=== PATIENT | male | born 1980 | race American Indian/Alaskan Native ===

== ENCOUNTER 2017-05-19 11:03 | Inpatient (IN) | payer OTHER ==
[2017-05-19] MEDS ORDERED: Morphine 4 mg/ml ISec IVP STA ×2 (11:55→16:21)
[2017-05-19] MEDS ORDERED: Sodium Chloride 0.9% 2,000 ML IV STA (11:55)
--- NOTE | 2017-05-19 12:06 | ED PDOC ---
Arrival/HPI - General Chief Complaint: Abdominal Pain Time Seen by Provider: 05/19/17 11:39 Historian: Patient - History of Present Illness Narrative History of Present Illness (Text): 05/19/17 12:03 A 37 year old male, who denies any past medical history, presents to the emergency department complaining of left lower abdominal pain for 2 days. Patient notes associated fever, chills and a few episodes of non-bloody diarrhea. He reports an increased urge to defecate. Patient took Tylenol, with no relief. Patient denies any nausea, vomiting, chest pain, shortness of breath or any other complaints. Time/Duration: Other (2 days) Symptom Course: Unchanged Context: Home Past Medical History - Provider Review Nursing Documentation Reviewed: Yes - Cardiac Hx Cardiac Disorders: No - Pulmonary Hx Respiratory Disorders: No - Neurological Hx Neurological Disorder: No - HEENT Hx HEENT Disorder: No - Renal Hx Renal Disorder: No - Endocrine/Metabolic Hx Endocrine Disorders: No - Hematological/Oncological Hx Blood Disorders: No - Integumentary Hx Dermatological Disorder: No - Musculoskeletal/Rheumatological Hx Musculoskeletal Disorders: No - Gastrointestinal Hx Gastrointestinal Disorders: No - Genitourinary/Gynecological Hx Genitourinary Disorders: No - Psychiatric Hx Psychophysiologic Disorder: No Hx Substance Use: No Family/Social History - Physician Review Nursing Documentation Reviewed: Yes Family/Social History: No Known Family HX Smoking Status: Never Smoked Hx Alcohol Use: Yes Hx Substance Use: No Allergies/Home Meds Allergies/Adverse Reactions: Allergies No Known Allergies Allergy (Verified 05/19/17 11:17) Home Medications: Home Meds Medication Instructions Recorded Confirmed No Known Home Med 05/19/17 05/19/17 Review of Systems - Physician Review All systems were reviewed & negative as marked: Yes - Review of Systems Constitutional: Fevers, Night Sweats Respiratory: absent: SOB Cardiovascular: absent: Chest Pain Gastrointestinal: Abdominal Pain (left lower abdomen), Diarrhea. absent: Nausea , Vomiting Physical Exam Vital Signs Reviewed: Yes Vital Signs Temp Pulse Pulse Resp BP Pulse Ox 05/19/17 18:07 98.2 F 89 89 18 139/88 05/19/17 16:28 139/88 05/19/17 15:51 89 18 128/71 98 05/19/17 13:27 94 H 18 131/79 98 05/19/17 11:18 98.2 F 97 H 18 134/84 98 Temperature: Afebrile Blood Pressure: Normal Pulse: Tachycardic Respiratory Rate: Normal Appearance: Positive for: Well-Appearing, Non-Toxic, Comfortable Pain Distress: None Mental Status: Positive for: Alert and Oriented X 3 - Systems Exam Head: Present: Atraumatic, Normocephalic Pupils: Present: PERRL Extroacular Muscles: Present: EOMI Conjunctiva: Present: Normal Mouth: Present: Moist Mucous Membranes Neck: Present: Normal Range of Motion Respiratory/Chest: Present: Clear to Auscultation, Good Air Exchange. No: Respiratory Distress, Accessory Muscle Use Cardiovascular: Present: Regular Rate and Rhythm, Normal S1, S2. No: Murmurs Abdomen: Present: Tenderness (LLQ tenderness to palpation), Normal Bowel Sounds. No: Distention, Peritoneal Signs, Rebound, Guarding Back: Present: Normal Inspection Upper Extremity: Present: Normal Inspection. No: Cyanosis, Edema Lower Extremity: Present: Normal Inspection. No: Edema Neurological: Present: GCS=15, CN II-XII Intact, Speech Normal Skin: Present: Warm, Dry, Normal Color. No: Rashes Psychiatric: Present: Alert, Oriented x 3, Normal Insight, Normal Concentration Medical Decision Making ED Course and Treatment: 05/19/17 12:03 Impression: A 37 year old male with left lower abdominal pain. Patient notes fever, chills and diarrhea. Differential Diagnosis included but are not limited to: Rule out Diverticulitis vs. Influenza Plan: -- Abdomen and pelvis CT -- Labs -- Blood culture -- Influenza A B stat -- Morphine, Zofran and IV fluids -- Reassess and disposition Progress Notes: Report Date : 05/19/2017 14:30:09 PROCEDURE: CT Abdomen and Pelvis with contrast Dictator : Yoni Mas MD IMPRESSION: Findings most compatible with sigmoid diverticulitis without abscess or definite free intraperitoneal gas appreciated at this time. Please see differential diagnosis above as described above. Follow-up lower endoscopy is advised following therapy. - Lab Interpretations Lab Results: 05/19/17 12:15 05/19/17 12:15 Lab Results 05/19/17 12:15: Sodium 140, Chloride 98, Potassium 3.8, Carbon Dioxide 32, Anion Gap 13, BUN 12, Creatinine 1.3, Est GFR ( Amer) > 60, Est GFR (Non- Af Amer) > 60, Random Glucose 111 H, Calcium 10.6 H, Total Bilirubin 1.0, AST 38 , ALT 69 H, Alkaline Phosphatase 56, Total Protein 8.7 H, Albumin 4.7, Globulin 4.0, Albumin/Globulin Ratio 1.2, Lipase 53 05/19/17 12:15: pO2 29 L, VBG pH 7.34, VBG pCO2 62.0 H, VBG HCO3 33.4 H, VBG Total CO2 35.3 H, VBG O2 Sat (Calc) 54.4, VBG Base Excess 5.6 H, VBG Potassium 3.7, Sodium 137.0, Chloride 101.0, Glucose 109, Lactate 1.1, FiO2 21.0, Venous Blood Potassium 3.7 05/19/17 12:15: PT 13.8 H, INR 1.20 H 05/19/17 12:15: Influenza Typ A,B (EIA) Negative for flu a/b 05/19/17 12:15: WBC 15.6 H, RBC 4.68, Hgb 14.4, Hct 40.9 L, MCV 87.4, MCH 30.8, MCHC 35.2, RDW 12.5, Plt Count 231, MPV 10.1, Gran % 83.4 H, Lymph % (Auto) 10.4 L, [place] % (Auto) 6.1 H, Eos % (Auto) 0.0 L, Baso % (Auto) 0.1, Gran # 13.01 H, Lymph # (Auto) 1.6, [place] # (Auto) 1.0 H, Eos # (Auto) 0.0, Baso # (Auto ) 0.01 I have reviewed the lab results: Yes - RAD Interpretation Radiology Orders: 05/19/17 11:55 ABD PELVIS PO & IV CONTRAST [CT] Stat - Medication Orders Current Medication Orders: Ciprofloxacin (Cipro 400mg/200ml Dsw) 400 mg in 200 mls @ 133.3 mls/hr IVPB Q12 VINCENZO PRN Reason: Protocol Stop: 05/19/17 23:31 Metronidazole (Flagyl) 500 mg in 100 mls @ 100 mls/hr IVPB Q8 VINCENZO PRN Reason: Protocol Last Admin: 05/19/17 21:58 Dose: 100 mls/hr eMAR Start Stop Document 05/19/17 21:58 OLIVD (Rec: 05/19/17 21:59 OLIVD [id number]) Intravenous Solution Start Date 05/19/17 Start Time 21:58 End Date 05/19/17 End time 22:58 Total Infusion Time 60 Sodium Chloride (Sodium Chloride 0.9%) 1,000 mls @ 100 mls/hr IV .Q10H VINCENZO Last Admin: 05/19/17 21:12 Dose: 100 mls/hr eMAR Start Stop Document 05/19/17 21:12 OLIVD (Rec: 05/19/17 21:12 OLIVD [id number]) Intravenous Solution Start Date 05/19/17 Start Time 21:12 Pantoprazole Sodium (Protonix Ec Tab) 40 mg PO 0600 VINCENZO Discontinued Medications Acetaminophen (Tylenol 325mg Tab) 650 mg PO STAT STA Stop: 05/19/17 20:06 Last Admin: 05/19/17 20:26 Dose: 650 mg Comments: T102.9 [facility] Pain/Vitals Document 05/19/17 20:26 OLIVD (Rec: 05/19/17 20:27 OLIVD [id number]) Pain Reassessment Is This A Pain ReAssessment? No Vitals Temperature (97.6 F-99.6 F) 102.9 F Temperature Source Oral Re-Assess: [facility] Pain/Vitals Document 05/19/17 21:26 OLIVD (Rec: 05/19/17 21:56 OLIVD [id number]) Vitals Temperature (97.6 F-99.6 F) 100.7 F Temperature Source Oral Sodium Chloride (Sodium Chloride 0.9%) 2,000 mls @ 999 mls/hr IV .Q2H1M STA Stop: 05/19/17 13:55 Last Admin: 05/19/17 12:40 Dose: 999 mls/hr eMAR Start Stop Document 05/19/17 12:40 GMD (Rec: 05/19/17 12:41 GMD [id number]) Intravenous Solution Start Date 05/19/17 Start Time 12:41 End Date 05/19/17 End time 14:41 Total Infusion Time 120 Metronidazole (Flagyl) 500 mg in 100 mls @ 100 mls/hr IVPB STAT STA PRN Reason: Protocol Stop: 05/19/17 17:18 Last Admin: 05/19/17 16:58 Dose: 100 mls/hr eMAR Start Stop Document 05/19/17 16:58 EQ (Rec: 05/19/17 16:58 EQ [id number]) Intravenous Solution Start Date 05/19/17 Start Time 16:58 Sodium Chloride (Sodium Chloride 0.9%) 1,000 mls @ 999 mls/hr IV .Q1H1M STA Stop: 05/19/17 17:21 Last Admin: 05/19/17 16:58 Dose: 999 mls/hr eMAR Start Stop Document 05/19/17 16:58 EQ (Rec: 05/19/17 16:58 EQ [id number]) Intravenous Solution Start Date 05/19/17 Start Time 16:58 Ketorolac Tromethamine (Toradol) 30 mg IVP STAT STA Stop: 05/19/17 20:12 Last Admin: 05/19/17 20:27 Dose: 30 mg [facility] Pain Assessment Document 05/19/17 20:27 OLIVD (Rec: 05/19/17 20:28 OLIVD [id number]) Pain Reassessment Is this a pain reassessment? No Presence of Pain Presence of Pain Yes Pain Scale Used Pain Scale Used Numeric Location Pain Location Body Site Abdomen Description Description Constant Intensity of Pain at present 9 Aggravating Factors Changing Position IVP Administration Document 05/19/17 20:27 OLIVD (Rec: 05/19/17 20:28 OLIVD [id number]) Charges for Administration # of IVP Administrations 1 Re-Assess: [facility] Pain Assessment Document 05/19/17 21:27 OLIVD (Rec: 05/19/17 21:55 OLIVD [id number]) Pain Reassessment Is this a pain reassessment? Yes Sleep Is patient sleeping during reassessment? No Presence of Pain Presence of Pain Yes Pain Scale Used Pain Scale Used Numeric Description Description Intermittent Intensity of Pain at present 7 Effectiveness of Techniques pain has decreased Levofloxacin/Dextrose (Levaquin 750mg) 750 mg IVPB ONCE ONE PRN Reason: Protocol Stop: 05/19/17 16:21 Last Admin: 05/19/17 17:59 Dose: 750 mg eMAR Start Stop Document 05/19/17 17:59 GMD (Rec: 05/19/17 17:59 GMD [id number]) Intravenous Solution Start Date 05/19/17 Start Time 17:59 Morphine Sulfate (Morphine) 4 mg IVP STAT STA Stop: 05/19/17 11:56 Last Admin: 05/19/17 12:41 Dose: 4 mg MAR Pain Assessment Document 05/19/17 12:41 GMD (Rec: 05/19/17 12:41 GMD [id number]) Pain Reassessment Is this a pain reassessment? No Presence of Pain Presence of Pain Yes IVP Administration Document 05/19/17 12:41 GMD (Rec: 05/19/17 12:41 GMD [id number]) Charges for Administration # of IVP Administrations 1 Morphine Sulfate (Morphine) 4 mg IVP STAT STA Stop: 05/19/17 16:22 Last Admin: 05/19/17 16:58 Dose: 4 mg MAR Pain Assessment Document 05/19/17 16:58 EQ (Rec: 05/19/17 16:59 EQ [id number]) Pain Reassessment Is this a pain reassessment? No Sleep Is patient sleeping during reassessment? No Presence of Pain Presence of Pain Yes IVP Administration Document 05/19/17 16:58 EQ (Rec: 05/19/17 16:59 EQ [id number]) Charges for Administration # of IVP Administrations 1 Ondansetron HCl (Zofran Inj) 4 mg IVP STAT STA Stop: 05/19/17 11:56 Last Admin: 05/19/17 12:41 Dose: 4 mg IVP Administration Document 05/19/17 12:41 GMD (Rec: 05/19/17 12:41 GMD [id number]) Charges for Administration # of IVP Administrations 1 Ondansetron HCl (Zofran Inj) 4 mg IVP STAT STA Stop: 05/19/17 16:22 Last Admin: 05/19/17 16:59 Dose: 4 mg IVP Administration Document 05/19/17 16:59 EQ (Rec: 05/19/17 16:59 EQ [id number]) Charges for Administration # of IVP Administrations 1 Pneumococcal Polyvalent Vaccine (Pneumovax 23 Vaccine) 0.5 ml IM .ONCE ONE Stop: 05/19/17 18:19 - PA / MEAT LOINER / Resident Statement MD/DO has reviewed & agrees with the documentation as recorded. - Scribe Statement The provider has reviewed the documentation as recorded by the Berny Herrera Provider Berny Attestation: All medical record entries made by the Berny were at my direction and personally dictated by me. I have reviewed the chart and agree that the record accurately reflects my personal performance of the history, physical exam, medical decision making, and the department course for this patient. I have also personally directed, reviewed, and agree with the discharge instructions and disposition. Disposition/Present on Arrival - Present on Arrival Any Indicators Present on Arrival: No History of DVT/PE: No History of Uncontrolled Diabetes: No Urinary Catheter: No History of Decub. Ulcer: No History Surgical Site Infection Following: None - Disposition Have Diagnosis and Disposition been Completed?: Yes Diagnosis: Diverticulitis Disposition: HOSPITALIZED Disposition Time: 22:19 Patient Plan: Admission Condition: GOOD
[2017-05-19] MEDS ORDERED: Iohexol 240 (50 ml) ONE (12:13)
[2017-05-19 12:40] LABS: BASO # 0.01 K/mm3 (0.0-2.0); BASO % 0.1 % (0.0-3.0); GRAN # 13.01 (1.4-6.5); GRAN % 83.4 % (50.0-68.0); HEMOGLOBIN 14.4 g/dL (14.0-18.0); LYMPH # 1.6 (1.2-3.4); LYMPH % 10.4 % (22.0-35.0); MEAN CELL VOLUME 87.4 fl (80.0-105.0); MEAN CORPUSCULAR HEMOGLOBIN 30.8 pg (25.0-35.0); MEAN CORPUSCULAR HGB CONC 35.2 g/dl (31.0-37.0); MEAN PLATELET VOLUME 10.1 fl (7.0-11.0); MONO % 6.1 % (1.0-6.0); RBC 4.68 10^6/uL (3.5-6.1); RED CELL DISTRIBUTION WIDTH 12.5 % (11.5-14.5); WHITE BLOOD COUNT 15.6 10^3/ul (4.5-11.0)
[2017-05-19 12:41] LABS: VENOUS BLOOD GAS BASE EXCESS 5.6 mmol/L (0.0-2.0); VENOUS BLOOD GAS PO2 29 mm/Hg (30-55); VENOUS BLOOD PH 7.34 (7.32-7.43)
[2017-05-19 12:46] LABS: INR 1.2 (0.93-1.08); PROTHROMBIN TIME 13.8 SECONDS (9.4-12.5)
[2017-05-19 12:49] LABS: ALB/GLOB RATIO 1.2 (1.1-1.8); ALBUMIN 4.7 g/dL (3.0-4.8); ALT/SGPT 69 U/L (7-56); AST/SGOT 38 U/L (17-59); BLOOD UREA NITROGEN 12 mg/dL (7-21); CALCIUM 10.6 mg/dL (8.4-10.5); GFR AFRICAN-AMERICAN > 60; GFR NON-AFRICAN AMERICAN > 60; LIPASE 53 U/L (23-300)
[2017-05-19 12:51] VITALS: BMI 31.4
[2017-05-19] MEDS ORDERED: Iohexol 350 MG/100 ML VIAL ONE (13:33)
--- NOTE | 2017-05-19 14:32 | CT ---
PROCEDURE: CT Abdomen and Pelvis with contrast HISTORY: LLQ PAIN/TENDERNESS ?DIVERTICULITIS? COMPARISON: None. TECHNIQUE: Following oral and intravenous contrast administration, a CT examination of the abdomen and pelvis performed from the domes of the diaphragms to the symphysis pubis with reformatted datasets provided not only axial but also sagittal and coronal series. Contrast dose: Omnipaque 350, 100 cc Radiation dose: Total exam DLP = 513.86 mGy-cm. This CT exam was performed using one or more of the following dose reduction techniques: Automated exposure control, adjustment of the mA and/or kV according to patient size, and/or use of iterative reconstruction technique. FINDINGS: LOWER THORAX: Trace bilateral basilar atelectasis is appreciated as well as a small hiatal hernia. LIVER: Unremarkable. No gross lesion or ductal dilatation. GALLBLADDER AND BILE DUCTS: Unremarkable. PANCREAS: Unremarkable. No gross lesion or ductal dilatation. SPLEEN: Unremarkable. ADRENALS: Unremarkable. No mass. KIDNEYS AND URETERS: Unremarkable. No hydronephrosis. No solid mass. VASCULATURE: Unremarkable. No aortic aneurysm. BOWEL: Stomach is unremarkable appearing. There is no bowel obstruction however there is marked thickening of the sigmoid colon diffusely with the midportion worst affected. Occasional diverticular seen related the overall pattern is most compatible with diverticulitis though other infectious or inflammatory causes are possible. Underlying neoplasm is not excluded and follow-up lower endoscopy is advised following therapy. Ischemia is not felt to present but is including the different diagnosis nevertheless. A past of small bowel loops appear unremarkable. No free intraperitoneal gas is evident and there is no abscess identified at this time. Liquified fecal material seen within distal small bowel loops past the affected inflamed sigmoid segment. APPENDIX: Normal appendix. PERITONEUM: Unremarkable. No free fluid. No free air. LYMPH NODES: Unremarkable. No enlarged lymph nodes. BLADDER: Unremarkable. REPRODUCTIVE: Unremarkable. BONES: No acute fracture. OTHER FINDINGS: None. IMPRESSION: Findings most compatible with sigmoid diverticulitis without abscess or definite free intraperitoneal gas appreciated at this time. Please see differential diagnosis above as described above. Follow-up lower endoscopy is advised following therapy.
[2017-05-19] MEDS ORDERED: metroNIDAZOLE IV 500 mg/100 ml 500 MG/100 ML BAG IVPB STA (16:19)
[2017-05-19] MEDS ORDERED: levoFLOXacin 750 mg in D5W 150 ML BAG IVPB ONE (16:20)
[2017-05-19] MEDS ORDERED: Sodium Chloride 0.9% 1,000 ML IV STA (16:21)
[2017-05-19] MEDS ORDERED: Influenza Vaccine 60 mcg/0.5 mL SYR (4YR UP) IM ONE (18:18)
[2017-05-19] MEDS ORDERED: Pneumococcal 23-Valent Vaccine IM ONE (18:18)
[2017-05-19 21:12] LABS: BASO # 0.01 K/mm3 (0.0-2.0); BASO % 0.1 % (0.0-3.0); EOS % 0.1 % (1.5-5.0); GRAN # 11.8 (1.4-6.5); GRAN % 79.3 % (50.0-68.0); HEMOGLOBIN 13.4 g/dL (14.0-18.0); LYMPH # 1.7 (1.2-3.4); LYMPH % 11.2 % (22.0-35.0); MEAN CORPUSCULAR HEMOGLOBIN 30.6 pg (25.0-35.0); MEAN CORPUSCULAR HGB CONC 35.2 g/dl (31.0-37.0); MEAN PLATELET VOLUME 9.9 fl (7.0-11.0); MONO # 1.4 (0.1-0.6); MONO % 9.3 % (1.0-6.0); RBC 4.38 10^6/uL (3.5-6.1); RED CELL DISTRIBUTION WIDTH 12.4 % (11.5-14.5); WHITE BLOOD COUNT 14.9 10^3/ul (4.5-11.0)
[2017-05-19] MEDS: Sodium Chloride 0.9% 1,000 ML IV SCH (21:12)
[2017-05-19] MEDS: metroNIDAZOLE IV 500 mg/100 ml 500 MG/100 ML BAG IVPB SCH (21:58)
[2017-05-19] MEDS ORDERED: Ciprofloxacin 400mg/200ml D5W 400 MG/200 ML BAG IVPB SCH (22:00)
--- NOTE | 2017-05-19 22:37 | CP.PCM.HP ---
<Casimiro Arthur - Last Filed: 05/19/17 22:32> History of Present Illness - History of Present Illness History of Present Illness: Medicine H/P: Dr. Haddad Chief Complaint: Abdominal Pain HPI: Patient is 37 year old male with questionable history of lactose intolerance ( gets sick to stomach when eats ice cream or drinks milk) who presented with abdominal pain in left lower quadrant and blood per rectum. Patient states that the pain started a couple of days ago, he went to [facility], from where he was discharged. He woke up this am at 5 with intractible pain and decided to come here to [facility]. Patient has never experienced this in the past. He said he had a fever at home of 102. Other than that, patient denies nausea vomiting diarrhea, chills, change in eating habits, weight loss, chest pain, or shortness of breath. Surgical History: Patient denies Medical History: ?Lactose intolerance? Allergies: NKDA Social History: Social alcohol, never smoker, +Marijuana, no IVDA Hospitaliztions: [place] [facility] Family History: No family history of diverticulosis; non-contributory Medications: No daily medications Review of Systems: 12 point ROS obtained and negative except as per HPI Present on Admission - Present on Admission Any Indicators Present on Admission: No Past Patient History - Past Social History Smoking Status: Never Smoked - CARDIAC Hx Cardiac Disorders: No - PULMONARY Hx Respiratory Disorders: No - NEUROLOGICAL Hx Neurological Disorder: No - HEENT Hx HEENT Problems: No - RENAL Hx Chronic Kidney Disease: No - ENDOCRINE/METABOLIC Hx Endocrine Disorders: No - HEMATOLOGICAL/ONCOLOGICAL Hx Blood Disorders: No - INTEGUMENTARY Hx Dermatological Problems: No - MUSCULOSKELETAL/RHEUMATOLOGICAL Hx Musculoskeletal Disorders: No - GASTROINTESTINAL Hx Gastrointestinal Disorders: No - GENITOURINARY/GYNECOLOGICAL Hx Genitourinary Disorders: No - PSYCHIATRIC Hx Psychophysiologic Disorder: No Hx Substance Use: No - SURGICAL HISTORY Hx Surgeries: Yes (tonsillectomy) Meds Allergies/Adverse Reactions: Allergies Allergy/AdvReac Type Severity Reaction Status Date / Time No Known Allergies Allergy Verified 05/19/17 11:17 Physical Exam - Constitutional Appears: Well - Head Exam Head Exam: ATRAUMATIC, NORMAL INSPECTION, NORMOCEPHALIC - Eye Exam Eye Exam: EOMI, Normal appearance, PERRL Pupil Exam: NORMAL ACCOMODATION, PERRL - ENT Exam ENT Exam: Mucous Membranes Moist, Normal Exam - Neck Exam Neck exam: Positive for: Normal Inspection - Respiratory Exam Respiratory Exam: Clear to Auscultation Bilateral, NORMAL BREATHING PATTERN - Cardiovascular Exam Cardiovascular Exam: REGULAR RHYTHM - GI/Abdominal Exam GI & Abdominal Exam: Normal Bowel Sounds, Soft. absent: Tenderness - Rectal Exam Rectal Exam: Bloody Stool. absent: Hemorrhoids - Extremities Exam Extremities exam: Positive for: normal inspection - Back Exam Back exam: NORMAL INSPECTION - Neurological Exam Neurological exam: Alert, CN II-XII Intact, Normal Gait, Oriented x3, Reflexes Normal - Psychiatric Exam Psychiatric exam: Normal Affect, Normal Mood - Skin Skin Exam: Dry, Intact, Normal Color, Warm - Additional Findings Additional findings: tenderness to palpation in LLQ Results - Vital Signs Recent Vital Signs: Last Vital Signs Temp 100.7 F H 05/19/17 21:26 Pulse 89 05/19/17 18:07 Resp 18 05/19/17 18:07 BP 139/88 05/19/17 18:07 Pulse Ox 98 05/19/17 15:51 - Labs Result Diagrams: 05/19/17 21:00 05/19/17 12:15 Labs: Laboratory Results - last 24 hr 05/19/17 21:00 WBC 14.9 H RBC 4.38 Hgb 13.4 L Hct 38.1 L MCV 87.0 MCH 30.6 MCHC 35.2 RDW 12.4 Plt Count 211 MPV 9.9 Gran % 79.3 H Lymph % (Auto) 11.2 L [place] % (Auto) 9.3 H Eos % (Auto) 0.1 L Baso % (Auto) 0.1 Gran # 11.80 H Lymph # (Auto) 1.7 [place] # (Auto) 1.4 H Eos # (Auto) 0.0 Baso # (Auto) 0.01 Assessment & Plan - Assessment and Plan (Free Text) Assessment: Assessment and Plan Patient is 37 year old male with questionable history of lactose intolerance ( gets sick to stomach when eats ice cream or drinks milk) who presented with abdominal pain in left lower quadrant and blood per rectum. CT Abdomen/Pelvis shows sigmoid diverticulitis, patient has leukocytosis, fever, with source of infection makes him septic. Sepsis, likely 2/2 Diverticulitis - Procal and Lactate ordered; no apparent end organ damage - Fluid resuscitation - Tylenol for fever Diverticulitis - Cipro flagyl - NPO - Fluids - Toradol for pain control Lactose intolerance - Avoid in diet Prophylaxis - SCD/Protonix <Kianna Haddadmery - Last Filed: 05/20/17 00:38> Results - Vital Signs Recent Vital Signs: Last Vital Signs Temp 100.7 F H 05/19/17 21:26 Pulse 89 05/19/17 18:07 Resp 18 05/19/17 18:07 BP 139/88 05/19/17 18:07 Pulse Ox 98 05/19/17 15:51 - Labs Result Diagrams: 05/19/17 21:00 05/19/17 12:15 Labs: Laboratory Results - last 24 hr 05/19/17 05/19/17 21:00 23:00 WBC 14.9 H RBC 4.38 Hgb 13.4 L Hct 38.1 L MCV 87.0 MCH 30.6 MCHC 35.2 RDW 12.4 Plt Count 211 MPV 9.9 Gran % 79.3 H Lymph % (Auto) 11.2 L [place] % (Auto) 9.3 H Eos % (Auto) 0.1 L Baso % (Auto) 0.1 Gran # 11.80 H Lymph # (Auto) 1.7 [place] # (Auto) 1.4 H Eos # (Auto) 0.0 Baso # (Auto) 0.01 Lactic Acid 0.9 Attending/Attestation - Attestation I have personally seen and examined this patient.: Yes I have fully participated in the care of the patient.: Yes I have reviewed all pertinent clinical information: Yes Notes (Text): 05/20/17 00:37 Patient was seen when he was in [phone]. Agree with history , physical examination, assessment and plan.
[2017-05-20] MEDS: metroNIDAZOLE IV 500 mg/100 ml 500 MG/100 ML BAG IVPB SCH ×3 (05:10→21:50)
[2017-05-20 07:19] LABS: ALB/GLOB RATIO 1.1 (1.1-1.8); ALBUMIN 3.8 g/dL (3.0-4.8); ALT/SGPT 48 U/L (7-56); AST/SGOT 36 U/L (17-59); BLOOD UREA NITROGEN 14 mg/dL (7-21); CALCIUM 9.5 mg/dL (8.4-10.5); GFR AFRICAN-AMERICAN > 60; GFR NON-AFRICAN AMERICAN 57
[2017-05-20 09:23] LABS: BASO # 0.01 K/mm3 (0.0-2.0); BASO % 0.1 % (0.0-3.0); EOS % 0.2 % (1.5-5.0); GRAN # 10.44 (1.4-6.5); GRAN % 80.8 % (50.0-68.0); HEMOGLOBIN 12.6 g/dL (14.0-18.0); LYMPH # 1.4 (1.2-3.4); LYMPH % 10.8 % (22.0-35.0); MEAN CELL VOLUME 88.4 fl (80.0-105.0); MEAN CORPUSCULAR HEMOGLOBIN 30.5 pg (25.0-35.0); MEAN CORPUSCULAR HGB CONC 34.5 g/dl (31.0-37.0); MEAN PLATELET VOLUME 10.6 fl (7.0-11.0); MONO # 1.1 (0.1-0.6); MONO % 8.1 % (1.0-6.0); RBC 4.13 10^6/uL (3.5-6.1); RED CELL DISTRIBUTION WIDTH 12.6 % (11.5-14.5); WHITE BLOOD COUNT 12.9 10^3/ul (4.5-11.0)
[2017-05-20] MEDS: Pantoprazole 40 mg EC Tab PO SCH (09:45)
[2017-05-20] MEDS: cefTRIAXone 1 gm 1 GM/100 ML BAG IVPB SCH (09:45)
--- NOTE | 2017-05-20 13:31 | CON ---
DATE: 05/20/2017 HISTORY OF PRESENT ILLNESS: I examined Mr. Benavides this morning. He is a 37-year-old black male who denies a significant past medical and GI history, seen in the emergency room with increasingly severe left lower quadrant pain for two days. Apparently, he went to the emergency room at [facility] several days ago, but did not perform any imaging studies, this was for small amount of blood per rectum. The patient subsequently went to his family doctor and was advised to come to the emergency room at [place]. The patient denied hematemesis or gross rectal bleeding. He is taking Tylenol at home for pain, but this produced no significant response. PHYSICAL EXAMINATION: VITAL SIGNS: I reviewed this patient's vital signs. HEENT: Noncontributory. LUNGS: Clear to auscultation. HEART: Regular rhythm. ABDOMEN: Protuberant, irregular bowel sounds. The patient has some fullness in the colon noted over the right paraumbilical as well as above the umbilicus. In the area to the left of the umbilicus, there is a very significant fullness with a moderate amount of pain on palpation and this extends into the left lower quadrant. There is no epigastric pain. LABORATORY DATA: I reviewed this patient's laboratory data was significant for white count of 15, 000 last night, H and H of 13 and 38 with a platelet count of 211. INR is within normal limits. Chemistry significant for a calcium at 10.6, mildly elevated ALT. Normal electrolytes and renal function. Abdominal CT scan images were reviewed. The abdominal CT reveals that there is significant thickening in the area of sigmoid colon with diverticular pockets. ASSESSMENT: This is a 37-year-old black male admitted for complaints of increasing degree of abdominal pain for the past couple of days. Review of CT images shows report indicative of probable diverticulitis in the area of the sigmoid colon at distal descending. The patient is currently on metronidazole and one dose of Levaquin was given. The patient should be on Levaquin or something similar in addition to metronidazole for his clinical course. Dietary nunez, because of his diverticulitis issue, suggest very small volumes of clear liquids only if there is no nausea, vomiting, and increased pain associated with the latter. The patient will be followed up by the medical house staff as well as possibly Surgery later on this morning. Dennis Villatoro DO, PhD [facility] # [id number] RODRIGO
[2017-05-20] MEDS: Sodium Chloride 0.9% 1,000 ML IV SCH (13:53)
--- NOTE | 2017-05-20 14:12 | CP.PCM.PN ---
<Eriberto Teresa - Last Filed: 05/20/17 14:07> Subjective - Date & Time of Evaluation Date of Evaluation: 05/20/17 Time of Evaluation: 14:07 - Subjective Subjective: Medicine Progress Note: Patient seen and assessed at bedside. No acute events overnight. Patient reports that his presenting abdominal pain has not completely resolved but has improved since admission. He currently denies any fevers, chills, headache, chest pain, palpitations, SOB, N/V/D/C, urinary symptoms, skin changes or any numbness/tingling/weakness of any extremity. Objective - Vital Signs/Intake and Output Vital Signs (last 24 hours): Temp Pulse Resp BP Pulse Ox 98.3 F 93 H 18 123/78 96 05/20/17 07:36 05/20/17 07:36 05/20/17 07:36 05/20/17 07:36 05/20/17 07:36 Intake and Output: 05/20/17 05/20/17 06:59 18:59 Intake Total 1380 Balance 1380 - Medications Medications: Current Medications Metronidazole (Flagyl) 500 mg in 100 mls @ 100 mls/hr IVPB Q8 [facility] PRN Reason: Protocol Last Admin: 05/20/17 13:52 Dose: 100 mls/hr Sodium Chloride (Sodium Chloride 0.9%) 1,000 mls @ 100 mls/hr IV .Q10H [facility] Last Admin: 05/20/17 13:53 Dose: 100 mls/hr Ceftriaxone Sodium (Rocephin 1 Gram Ivpb) 1 gm in 100 mls @ 100 mls/hr IVPB DAILY [facility] PRN Reason: Protocol Stop: 05/30/17 10:01 Last Admin: 05/20/17 09:45 Dose: 100 mls/hr Ketorolac Tromethamine (Toradol) 15 mg IVP Q8H PRN PRN Reason: Pain, severe (8-10) Pantoprazole Sodium (Protonix Ec Tab) 40 mg PO 0600 [facility] Last Admin: 05/20/17 09:45 Dose: 40 mg - Labs Labs: 05/20/17 08:30 05/20/17 05:30 PT 13.8 SECONDS (9.4-12.5) H 05/19/17 12:15 INR 1.20 (0.93-1.08) H 05/19/17 12:15 - Constitutional Appears: Non-toxic, No Acute Distress - Head Exam Head Exam: ATRAUMATIC, NORMOCEPHALIC - Eye Exam Eye Exam: EOMI, Normal appearance Pupil Exam: NORMAL ACCOMODATION, PERRL - ENT Exam ENT Exam: Mucous Membranes Moist, Normal Exam - Neck Exam Neck Exam: Full ROM, Normal Inspection. absent: Lymphadenopathy, Tenderness - Respiratory Exam Respiratory Exam: Clear to Ausculation Bilateral, NORMAL BREATHING PATTERN. absent: Accessory Muscle Use, Decreased Breath Sounds, Rales, Rhonchi, Wheezes, Respiratory Distress - Cardiovascular Exam Cardiovascular Exam: REGULAR RHYTHM, RRR, +S1, +S2. absent: Bradycardia, Tachycardia, Clicks, Diastolic murmur, Gallop, Irregular Rhythm, JVD, Rubs, +S4 , Murmur - GI/Abdominal Exam GI & Abdominal Exam: Soft, Tenderness (TTP to LLQ), Normal Bowel Sounds. absent : Distended, Firm, Guarding, Rigid, Rebound - Extremities Exam Extremities Exam: Full ROM, Normal Capillary Refill, Normal Inspection. absent : Calf Tenderness, Joint Swelling, Pedal Edema, Tenderness - Back Exam Back Exam: NORMAL INSPECTION. absent: CVA tenderness (L), CVA tenderness (R) - Neurological Exam Neurological Exam: Alert, Awake, CN II-XII Intact, Normal Gait, Oriented x3 - Psychiatric Exam Psychiatric exam: Normal Affect, Normal Mood - Skin Skin Exam: Dry, Intact, Normal Color, Warm Assessment and Plan - Assessment and Plan (Free Text) Assessment: 37 year old male with no significant past medical history who presented with left lower quadrant abdominal pain and bright red blood per rectum. CT Abdomen/ Pelvis showed sigmoid diverticulitis. Patient is currently on Rocephin and Flagyl with clinical improvement noted. Plan: 1. Sigmoid Diverticulitis -CT Abdomen/Pelvis showed findings consistent with sigmoid diverticulitis -Patient afebrile for 24 hours with a leukocytosis of 12.9 and without tachycardia, tachypnea or lactic acidosis -Blood culture, stool culture, and procalcitonin pending -Continue IV Flagyl and Rocephin for empiric coverage -Continue Normal Saline at 100mls/hr -Continue Toradol for pain control -Clear liquid diet -GI consulted, all recommendations appreciated GI Prophylaxis: Protonix DVT Prophylaxis: SCD's Patient seen and case discussed with attending, Dr. Nia Roger. <Nia Roger - Last Filed: 05/21/17 19:02> Objective - Vital Signs/Intake and Output Vital Signs (last 24 hours): Temp Pulse Resp BP Pulse Ox 98.8 F 20 L 20 142/89 97 05/20/17 16:00 05/20/17 16:00 05/20/17 16:00 05/20/17 16:00 05/20/17 16:00 Intake and Output: 05/21/17 05/21/17 06:59 18:59 Intake Total 960 Balance 960 - Medications Medications: Current Medications Metronidazole (Flagyl) 500 mg in 100 mls @ 100 mls/hr IVPB Q8 [facility] PRN Reason: Protocol Last Admin: 05/21/17 14:39 Dose: 100 mls/hr Sodium Chloride (Sodium Chloride 0.9%) 1,000 mls @ 100 mls/hr IV .Q10H [facility] Last Admin: 05/20/17 13:53 Dose: 100 mls/hr Ceftriaxone Sodium (Rocephin 1 Gram Ivpb) 1 gm in 100 mls @ 100 mls/hr IVPB DAILY [facility] PRN Reason: Protocol Stop: 05/30/17 10:01 Last Admin: 05/21/17 09:38 Dose: 100 mls/hr Ketorolac Tromethamine (Toradol) 15 mg IVP Q8H PRN PRN Reason: Pain, severe (8-10) Last Admin: 05/21/17 11:37 Dose: 15 mg Pantoprazole Sodium (Protonix Ec Tab) 40 mg PO 0600 [facility] Last Admin: 05/21/17 05:30 Dose: 40 mg - Labs Labs: 05/21/17 07:00 05/21/17 07:00 PT 13.8 SECONDS (9.4-12.5) H 05/19/17 12:15 INR 1.20 (0.93-1.08) H 05/19/17 12:15 Attending/Attestation - Attestation I have personally seen and examined this patient.: Yes I have fully participated in the care of the patient.: Yes I have reviewed all pertinent clinical information, including history, physical exam and plan: Yes Notes (Text): I have seen and examined the patient at bedside. Agree with the note above with the following additions/ exceptions:Briefly this is 37 year old male with no significant past medical history who came for evaluation of LLQ pain and BRBPR. CT Abdomen/Pelvis showed sigmoid diverticulitis. Continue Rocephin and Flagyl. Patient feels better and only has mild LLQ tenderness. Will continue IVF and start clear liquid diet for dinner. Cultures pending. GI consult appreciated. Upon discharge patient will follow up with Dr Leon. Dr Nia Roger
[2017-05-20 17:57] VITALS: RESP 20
[2017-05-21] MEDS: metroNIDAZOLE IV 500 mg/100 ml 500 MG/100 ML BAG IVPB SCH ×3 (05:30→21:38)
[2017-05-21] MEDS: Pantoprazole 40 mg EC Tab PO SCH (05:30)
[2017-05-21 07:36] LABS: BASO # 0.01 K/mm3 (0.0-2.0); BASO % 0.1 % (0.0-3.0); EOS # 0.1 (0.0-0.7); GRAN # 5.4 (1.4-6.5); GRAN % 70.9 % (50.0-68.0); HEMOGLOBIN 11.4 g/dL (14.0-18.0); LYMPH # 1.3 (1.2-3.4); LYMPH % 16.6 % (22.0-35.0); MEAN CELL VOLUME 87.8 fl (80.0-105.0); MEAN CORPUSCULAR HEMOGLOBIN 30.2 pg (25.0-35.0); MEAN CORPUSCULAR HGB CONC 34.3 g/dl (31.0-37.0); MEAN PLATELET VOLUME 10.4 fl (7.0-11.0); MONO # 0.9 (0.1-0.6); MONO % 11.4 % (1.0-6.0); RBC 3.78 10^6/uL (3.5-6.1); RED CELL DISTRIBUTION WIDTH 12.4 % (11.5-14.5); WHITE BLOOD COUNT 7.6 10^3/ul (4.5-11.0)
[2017-05-21 07:54] LABS: ALB/GLOB RATIO 1.1 (1.1-1.8); ALBUMIN 3.5 g/dL (3.0-4.8); ALT/SGPT 60 U/L (7-56); AST/SGOT 40 U/L (17-59); BLOOD UREA NITROGEN 12 mg/dL (7-21); CALCIUM 9.2 mg/dL (8.4-10.5); GFR AFRICAN-AMERICAN > 60; GFR NON-AFRICAN AMERICAN > 60
--- NOTE | 2017-05-21 08:02 | CP.PCM.PN ---
<Allison Woodall - Last Filed: 05/21/17 10:34> Subjective - Date & Time of Evaluation Date of Evaluation: 05/21/17 Time of Evaluation: 07:59 - Subjective Subjective: PGY-2 Progress note for hospitalist service Patient seen and examined at bedside. No acute distress. Nurse reports 1 loose bowel movement overnight, denies any blood. Patient reports some mild cramping abd pain due to gas. He states his pain has improved but continues to be tender with palpations. He states that he had subjective fever overnight, however his temperature was not elevated. Patient is tolerating liquid diet. Objective - Vital Signs/Intake and Output Vital Signs (last 24 hours): Temp Pulse Resp BP Pulse Ox 98.8 F 20 L 20 142/89 97 05/20/17 16:00 05/20/17 16:00 05/20/17 16:00 05/20/17 16:00 05/20/17 16:00 Intake and Output: 05/21/17 05/21/17 06:59 18:59 Intake Total 960 Balance 960 - Medications Medications: Current Medications Metronidazole (Flagyl) 500 mg in 100 mls @ 100 mls/hr IVPB Q8 [facility] PRN Reason: Protocol Last Admin: 05/21/17 05:30 Dose: 100 mls/hr Sodium Chloride (Sodium Chloride 0.9%) 1,000 mls @ 100 mls/hr IV .Q10H [facility] Last Admin: 05/20/17 13:53 Dose: 100 mls/hr Ceftriaxone Sodium (Rocephin 1 Gram Ivpb) 1 gm in 100 mls @ 100 mls/hr IVPB DAILY [facility] PRN Reason: Protocol Stop: 05/30/17 10:01 Last Admin: 05/20/17 09:45 Dose: 100 mls/hr Ketorolac Tromethamine (Toradol) 15 mg IVP Q8H PRN PRN Reason: Pain, severe (8-10) Last Admin: 05/20/17 21:50 Dose: 15 mg Pantoprazole Sodium (Protonix Ec Tab) 40 mg PO 0600 [facility] Last Admin: 05/21/17 05:30 Dose: 40 mg - Labs Labs: 05/21/17 07:00 05/21/17 07:00 PT 13.8 SECONDS (9.4-12.5) H 05/19/17 12:15 INR 1.20 (0.93-1.08) H 05/19/17 12:15 - Constitutional Appears: Well, No Acute Distress - Head Exam Head Exam: ATRAUMATIC, NORMAL INSPECTION, NORMOCEPHALIC - Eye Exam Eye Exam: EOMI, Normal appearance - ENT Exam ENT Exam: Mucous Membranes Moist - Respiratory Exam Respiratory Exam: Clear to Ausculation Bilateral, NORMAL BREATHING PATTERN. absent: Rhonchi, Wheezes, Respiratory Distress - Cardiovascular Exam Cardiovascular Exam: REGULAR RHYTHM, +S1, +S2. absent: Tachycardia, Murmur - GI/Abdominal Exam GI & Abdominal Exam: Soft, Tenderness (with palpation), Normal Bowel Sounds. absent: Distended, Firm - Neurological Exam Neurological Exam: Alert, Awake, Oriented x3 - Skin Skin Exam: Dry, Intact, Normal Color, Warm Assessment and Plan - Assessment and Plan (Free Text) Assessment: 37 year old male with no significant past medical history who presented with left lower quadrant abdominal pain and bright red blood per rectum. CT Abdomen/ Pelvis showed sigmoid diverticulitis. Patient is currently on Rocephin and Flagyl with clinical improvement noted. Plan: Sigmoid Diverticulitis -CT Abdomen/Pelvis showed findings consistent with sigmoid diverticulitis -Patient is afebrile overnight, leukocytosis resolved -Blood culture negtaive for 24 hours -procalcitonin is low -Continue IV Flagyl and Rocephin -Continue Normal Saline at 100mls/hr -Continue Toradol for pain control -patient tolerating Clear liquid diet, will advance to full liquid diet -will order HIV testing -GI consulted, all recommendations appreciated GI Prophylaxis: Protonix DVT Prophylaxis: SCD's <Nia Roger B - Last Filed: 05/21/17 19:08> Objective - Vital Signs/Intake and Output Vital Signs (last 24 hours): Temp Pulse Resp BP Pulse Ox 98.8 F 20 L 20 142/89 97 05/20/17 16:00 05/20/17 16:00 05/20/17 16:00 05/20/17 16:00 05/20/17 16:00 - Medications Medications: Current Medications Metronidazole (Flagyl) 500 mg in 100 mls @ 100 mls/hr IVPB Q8 [facility] PRN Reason: Protocol Last Admin: 05/21/17 14:39 Dose: 100 mls/hr Sodium Chloride (Sodium Chloride 0.9%) 1,000 mls @ 100 mls/hr IV .Q10H [facility] Last Admin: 05/20/17 13:53 Dose: 100 mls/hr Ceftriaxone Sodium (Rocephin 1 Gram Ivpb) 1 gm in 100 mls @ 100 mls/hr IVPB DAILY [facility] PRN Reason: Protocol Stop: 05/30/17 10:01 Last Admin: 05/21/17 09:38 Dose: 100 mls/hr Ketorolac Tromethamine (Toradol) 15 mg IVP Q8H PRN PRN Reason: Pain, severe (8-10) Last Admin: 05/21/17 11:37 Dose: 15 mg Pantoprazole Sodium (Protonix Ec Tab) 40 mg PO 0600 [facility] Last Admin: 05/21/17 05:30 Dose: 40 mg - Labs Labs: 05/21/17 07:00 05/21/17 07:00 PT 13.8 SECONDS (9.4-12.5) H 05/19/17 12:15 INR 1.20 (0.93-1.08) H 05/19/17 12:15 Attending/Attestation - Attestation I have personally seen and examined this patient.: Yes I have fully participated in the care of the patient.: Yes I have reviewed all pertinent clinical information, including history, physical exam and plan: Yes Notes (Text): I have seen and examined the patient at bedside. Agree with the note above with the following additions/ exceptions:Briefly this is 37 year old male with no significant past medical history who came for evaluation of LLQ pain and BRBPR. CT Abdomen/Pelvis showed sigmoid diverticulitis. Continue Rocephin and Flagyl. Patient feels better and still has mild LLQ tenderness. Had mild nausea which has resolved now. Will advance diet as tolerated. Cultures pending. GI consult appreciated. Upon discharge patient will follow up with Dr Leno. Dr Nia Roger
[2017-05-21] MEDS: cefTRIAXone 1 gm 1 GM/100 ML BAG IVPB SCH (09:38)
--- NOTE | 2017-05-21 10:31 | PN ---
DATE: SUBJECTIVE: I saw Mr. Benavides this morning. He is a 37-year-old black male with complaints of severe abdominal pain several days prior to admission. The patient was found to have diverticulitis, probably in the distal descending colon, sigmoid. At the bedside this morning, the patient indicates the pain overall is down, it is roughly about 3-4/10. He has not experienced rectal bleeding or nausea or vomiting. The patient was able to handle small volumes of clear liquid yesterday. Still experiencing pain in the groin area with walking. The abdomen is still distended. PHYSICAL EXAMINATION VITAL SIGNS: I reviewed this patient's vital signs. HEENT: Noncontributory. LUNGS: Clear to auscultation. HEART: Regular rhythm. ABDOMEN: Mildly distended. He has no tenderness elicited in the area of the right lower quadrant extending to the right upper quadrant; also, no discomfort elicited above the umbilicus. On palpation of umbilicus there is this radiation of discomfort down to the left lower quadrant. Near the left paraumbilical, extending to the deep left lower quadrant, there is significant fullness and he has exhibition of pain on palpation of the lateral areas. LABORATORY DATA: Pending this morning; however, as of yesterday, the white count decreased from 15,000 to 12,000. It is dilutional component and drop in H&H. Comprehensive metabolic from yesterday morning is noncontributory. Labs are pending for this morning. OVERALL ASSESSMENT: This is a 37-year-old black male admitted for complaints of abdominal pain secondary to diverticulitis of the distal colon. I agree with the orders, which consists of ceftriaxone and metronidazole. I think he could probably do well with one more day possibly of IV antibiotics. One might consider if the patient is significantly improved, to consider may be discharge late tomorrow if at all. Would continue him on his current liquid diet advance. Dennis Villatoro DO
[2017-05-21] MEDS: Sodium Chloride 0.9% 1,000 ML IV SCH (19:44)
[2017-05-22] MEDS: Pantoprazole 40 mg EC Tab PO SCH (05:50)
[2017-05-22] MEDS: metroNIDAZOLE IV 500 mg/100 ml 500 MG/100 ML BAG IVPB SCH ×3 (05:50→21:37)
[2017-05-22] MEDS: Sodium Chloride 0.9% 1,000 ML IV SCH (05:51)
[2017-05-22 07:14] LABS: BASO # 0.01 K/mm3 (0.0-2.0); BASO % 0.2 % (0.0-3.0); EOS # 0.1 (0.0-0.7); EOS % 2.3 % (1.5-5.0); GRAN # 3.59 (1.4-6.5); GRAN % 64.5 % (50.0-68.0); HEMOGLOBIN 10.7 g/dL (14.0-18.0); LYMPH # 1.3 (1.2-3.4); LYMPH % 23.7 % (22.0-35.0); MEAN CELL VOLUME 87.9 fl (80.0-105.0); MEAN CORPUSCULAR HEMOGLOBIN 29.5 pg (25.0-35.0); MEAN CORPUSCULAR HGB CONC 33.5 g/dl (31.0-37.0); MEAN PLATELET VOLUME 10.3 fl (7.0-11.0); MONO # 0.5 (0.1-0.6); MONO % 9.3 % (1.0-6.0); RBC 3.63 10^6/uL (3.5-6.1); RED CELL DISTRIBUTION WIDTH 12.4 % (11.5-14.5); WHITE BLOOD COUNT 5.6 10^3/ul (4.5-11.0)
[2017-05-22 07:27] LABS: ALB/GLOB RATIO 1.1 (1.1-1.8); ALBUMIN 3.3 g/dL (3.0-4.8); ALT/SGPT 77 U/L (7-56); AST/SGOT 68 U/L (17-59); BLOOD UREA NITROGEN 12 mg/dL (7-21); CALCIUM 9.1 mg/dL (8.4-10.5); GFR AFRICAN-AMERICAN > 60; GFR NON-AFRICAN AMERICAN > 60
--- NOTE | 2017-05-22 09:28 | CP.PCM.PN ---
<Allison Woodall - Last Filed: 05/22/17 13:06> Subjective - Date & Time of Evaluation Date of Evaluation: 05/22/17 Time of Evaluation: 09:25 - Subjective Subjective: PGY-2 Progress note for hospitalist service patient seen and examined at bedside. No acute distress. Overnight patient had multiple loose bowel movements, denies any blood. He also reports some cramping pain that improves with pain medications. He is tolerating full liquid diet. Denies any chest pain, n/v, sob, fevers, chills. Objective - Vital Signs/Intake and Output Vital Signs (last 24 hours): Temp Pulse Resp BP Pulse Ox 98.8 F 20 L 20 142/89 97 05/20/17 16:00 05/20/17 16:00 05/20/17 16:00 05/20/17 16:00 05/20/17 16:00 Intake and Output: 05/22/17 05/22/17 06:59 18:59 Intake Total 2880 Balance 2880 - Medications Medications: Current Medications Metronidazole (Flagyl) 500 mg in 100 mls @ 100 mls/hr IVPB Q8 [facility] PRN Reason: Protocol Last Admin: 05/22/17 05:50 Dose: 100 mls/hr Sodium Chloride (Sodium Chloride 0.9%) 1,000 mls @ 100 mls/hr IV .Q10H [facility] Last Admin: 05/22/17 05:51 Dose: 100 mls/hr Ceftriaxone Sodium (Rocephin 1 Gram Ivpb) 1 gm in 100 mls @ 100 mls/hr IVPB DAILY [facility] PRN Reason: Protocol Stop: 05/30/17 10:01 Last Admin: 05/21/17 09:38 Dose: 100 mls/hr Ketorolac Tromethamine (Toradol) 15 mg IVP Q8H PRN PRN Reason: Pain, severe (8-10) Last Admin: 05/21/17 19:45 Dose: 15 mg Pantoprazole Sodium (Protonix Ec Tab) 40 mg PO 0600 [facility] Last Admin: 05/22/17 05:50 Dose: 40 mg - Labs Labs: 05/22/17 06:25 05/22/17 06:25 PT 13.8 SECONDS (9.4-12.5) H 05/19/17 12:15 INR 1.20 (0.93-1.08) H 05/19/17 12:15 - Constitutional Appears: Well, No Acute Distress - Head Exam Head Exam: ATRAUMATIC, NORMAL INSPECTION, NORMOCEPHALIC - Eye Exam Eye Exam: EOMI, Normal appearance - ENT Exam ENT Exam: Mucous Membranes Moist - Respiratory Exam Respiratory Exam: Clear to Ausculation Bilateral, NORMAL BREATHING PATTERN. absent: Decreased Breath Sounds, Rhonchi, Wheezes, Respiratory Distress - Cardiovascular Exam Cardiovascular Exam: REGULAR RHYTHM, +S1, +S2. absent: Tachycardia, Murmur - GI/Abdominal Exam GI & Abdominal Exam: Soft, Normal Bowel Sounds. absent: Distended, Tenderness - Extremities Exam Extremities Exam: Normal Inspection - Neurological Exam Neurological Exam: Alert, Awake, Oriented x3 - Skin Skin Exam: Dry, Intact, Normal Color, Warm Assessment and Plan - Assessment and Plan (Free Text) Assessment: 37 year old male with no significant past medical history who presented with left lower quadrant abdominal pain and bright red blood per rectum. CT Abdomen/ Pelvis showed sigmoid diverticulitis. Patient is currently on Rocephin and Flagyl. Plan: Sigmoid Diverticulitis -CT Abdomen/Pelvis showed findings consistent with sigmoid diverticulitis -Patient is afebrile overnight, leukocytosis resolved -Blood culture negtaive for 24 hours -procalcitonin is low -Continue IV Flagyl and Rocephin -Continue Normal Saline at 100mls/hr -Continue Toradol for pain control, avoid opiates -patient tolerating Clear liquid diet, will continue per GI recommendations -will order HIV testing -GI consulted, all recommendations appreciated anemia - hgb down trending - ordered iron, ferratin, tibc, folate, vit B12, retic count - will continue to monitor transaminitis - most likely due to antibiotics - will order hep panel - continue to monitor GI Prophylaxis: Protonix DVT Prophylaxis: SCD's <Nia Roger - Last Filed: 05/22/17 15:29> Objective - Vital Signs/Intake and Output Vital Signs (last 24 hours): Temp Pulse Resp BP Pulse Ox 98.0 F 67 20 131/83 98 05/22/17 06:00 05/22/17 06:00 05/22/17 06:00 05/22/17 06:00 05/22/17 06:00 Intake and Output: 05/22/17 05/22/17 06:59 18:59 Intake Total 2880 Balance 2880 - Medications Medications: Current Medications Metronidazole (Flagyl) 500 mg in 100 mls @ 100 mls/hr IVPB Q8 [facility] PRN Reason: Protocol Last Admin: 05/22/17 14:59 Dose: 100 mls/hr Sodium Chloride (Sodium Chloride 0.9%) 1,000 mls @ 100 mls/hr IV .Q10H [facility] Last Admin: 05/22/17 05:51 Dose: 100 mls/hr Ceftriaxone Sodium (Rocephin 1 Gram Ivpb) 1 gm in 100 mls @ 100 mls/hr IVPB DAILY [facility] PRN Reason: Protocol Stop: 05/30/17 10:01 Last Admin: 05/22/17 10:47 Dose: 100 mls/hr Ketorolac Tromethamine (Toradol) 15 mg IVP Q8H PRN PRN Reason: Pain, severe (8-10) Last Admin: 05/21/17 19:45 Dose: 15 mg Pantoprazole Sodium (Protonix Ec Tab) 40 mg PO 0600 [facility] Last Admin: 05/22/17 05:50 Dose: 40 mg - Labs Labs: 05/22/17 06:25 05/22/17 06:25 PT 13.8 SECONDS (9.4-12.5) H 05/19/17 12:15 INR 1.20 (0.93-1.08) H 05/19/17 12:15 Attending/Attestation - Attestation I have personally seen and examined this patient.: Yes I have fully participated in the care of the patient.: Yes I have reviewed all pertinent clinical information, including history, physical exam and plan: Yes Notes (Text): I have seen and examined the patient at bedside. Agree with the note above with the following additions/ exceptions: Briefly this is 37 year old male with no significant past medical history who came for evaluation of LLQ pain and BRBPR. CT Abdomen/Pelvis showed sigmoid diverticulitis. Continue Rocephin and Flagyl. Patient feels better today. Denies nausea or vomiting. GI recommended to continue full liquid diet for today. Patient still has mild LLQ tenderness. Blood Cultures negative. Stool cultures pending. Hb dropped to 10 today. Patient did not notice any GI bleeding. Patient has been on IVF and this can be dilutional. Will do anemia work up. Possible discharge tomorrow morning. Upon discharge patient will follow up with Dr Leon. Dr Nia Roger
[2017-05-22 09:30] LABS: IRON 32 ug/dL (45-180)
[2017-05-22 09:39] LABS: % IRON SATURATION 12 % (20-55); TOTAL IRON BINDING CAPACITY 268 ug/dL (261-462)
[2017-05-22] MEDS: cefTRIAXone 1 gm 1 GM/100 ML BAG IVPB SCH (10:47)
--- NOTE | 2017-05-22 11:00 | PN ---
DATE: SUBJECTIVE: I saw Mr. Benavides this morning. He is a 37-year-old black male with complaints of acute abdominal pain, thought to have diverticulitis in the area of the distal descending and sigmoid colon. At the bedside this morning, the patient indicates that the pain is roughly around 3 or 4/10. Denied any rectal bleeding or hematemesis. Started liquid diet, which was associated with some cramping. He has been passing flatus as well. PHYSICAL EXAMINATION VITAL SIGNS: I reviewed this patient's vital signs. HEENT: Noncontributory. LUNGS: Clear to auscultation. HEART: Regular rhythm. ABDOMEN: Still mildly distended. There is no tenderness elicited in the right upper or right lower quadrants. No tenderness elicited in the left lower quadrant with periumbilical palpation. He still has a substantial fullness noted in the left periumbilical and left lower quadrant. LABORATORY RESULTS: Indicate a substantial decrease in his white count from 15 initially to 7.6 as of yesterday. He had some dilutional effect in his H and H - last one with platelet count of 186,000. OVERALL ASSESSMENT: A 37-year-old black male with complaints of severe abdominal pain, certainly diverticulitis of the distal descending and sigmoid colon. The patient still has a substantial fullness noted in the left lower quadrant. I think possibly one more day of IV antibiotics would do him well and complete the remainder of the regimen as an outpatient. The patient will be evaluated by Dr. Roger later on this morning to make an assessment. We will discharge the patient late today or possibly tomorrow if his clinical status dictates. As of this point in time, the patient is still on a liquid diet. I do not really feel that he is ready for soft diet as of yet. We will possibly consider that tomorrow. He can be evaluated later by the house staff. Dennis Villatoro DO
[2017-05-22 11:02] VITALS: O2SAT 98
[2017-05-22 13:00] LABS: FOLATE 14.1 ng/mL
[2017-05-23] MEDS: Sodium Chloride 0.9% 1,000 ML IV SCH (01:00)
[2017-05-23] MEDS: metroNIDAZOLE IV 500 mg/100 ml 500 MG/100 ML BAG IVPB SCH (05:24)
[2017-05-23] MEDS: Pantoprazole 40 mg EC Tab PO SCH (05:24)
[2017-05-23 06:31] LABS: BASO # 0.02 K/mm3 (0.0-2.0); BASO % 0.3 % (0.0-3.0); EOS # 0.1 (0.0-0.7); EOS % 1.8 % (1.5-5.0); GRAN # 3.9 (1.4-6.5); GRAN % 63.8 % (50.0-68.0); HEMOGLOBIN 11.2 g/dL (14.0-18.0); LYMPH # 1.6 (1.2-3.4); LYMPH % 26.1 % (22.0-35.0); MEAN CELL VOLUME 87.6 fl (80.0-105.0); MEAN CORPUSCULAR HEMOGLOBIN 30.2 pg (25.0-35.0); MEAN CORPUSCULAR HGB CONC 34.5 g/dl (31.0-37.0); MEAN PLATELET VOLUME 9.7 fl (7.0-11.0); MONO # 0.5 (0.1-0.6); RBC 3.71 10^6/uL (3.5-6.1); RED CELL DISTRIBUTION WIDTH 12.4 % (11.5-14.5); WHITE BLOOD COUNT 6.1 10^3/ul (4.5-11.0)
[2017-05-23 07:00] LABS: ALBUMIN 3.3 g/dL (3.0-4.8); ALT/SGPT 80 U/L (7-56); AST/SGOT 66 U/L (17-59); BLOOD UREA NITROGEN 10 mg/dL (7-21); CALCIUM 9.5 mg/dL (8.4-10.5); GFR AFRICAN-AMERICAN > 60; GFR NON-AFRICAN AMERICAN > 60
[2017-05-23 08:36] LABS: HEPATITIS B SURFACE AG Negative (NEGATIVE)
[2017-05-23 08:40] VITALS: BP 115/70; PULSE 60; TEMP 97.9
[2017-05-23 08:42] LABS: HEPATITIS A IGM NEGATIVE (NEGATIVE); HEPATITIS B CORE AB NEGATIVE (NEGATIVE)
[2017-05-23 08:54] LABS: HEPATITIS C ANTIBODY NEGATIVE (NEGATIVE)
[2017-05-23] MEDS: cefTRIAXone 1 gm 1 GM/100 ML BAG IVPB SCH (10:01)
--- NOTE | 2017-05-23 10:16 | PN ---
DATE: 05/23/2017 SUBJECTIVE: I saw Mr. Benavides this morning. He is a 37-year-old black male with complaints of severe abdominal pain, found to have sigmoid descending colon diverticulitis. Patient is progressing well on his current therapeutic regimen, which includes ceftriaxone as well as metronidazole. Patient has done well on full-liquid diet. Pain level at the current time point is probably 2-3/10. There is no hematemesis or rectal bleeding. PHYSICAL EXAMINATION VITAL SIGNS: I reviewed this patient's vital signs. HEENT: Noncontributory. LUNGS: Clear to auscultation. HEART: Regular rhythm. ABDOMEN: Still mildly distended. Right upper and right lower quadrant noncontributory. No pain elicited in the area above the umbilicus or epigastric area. He still has a significant fullness noted in the area to the left of the umbilicus, in the left lower quadrant. Pain upon palpation roughly 2-3/10. Patient is passing flatus. LABORATORY DATA: I reviewed this patient's laboratory data associated with a significant decrease in white count, also some delusional aspect with H and H, which is currently 10.7 and 31.9. Patient denies any rectal bleeding. OVERALL ASSESSMENT: This is a 37-year-old black male with no significant past gastrointestinal history, admitted with sigmoid descending colon diverticulitis. Spoke to Dr. Roger about this patient yesterday. One might consider change patient's home regimen of Augmentin 500 mg b.i.d. plus metronidazole 500 mg t.i.d. Patient needs endoscopic evaluation at a later date especially about six to eight weeks after colonoscopy. One might pursue etiology for the drop in count, drop in hemoglobin and hematocrit for past couple of days on an outpatient basis. There has been no gross bleeding. I advised this patient about advancing diet and probably start a soft low-residue diet this morning, small portions only. Dennis Villatoro DO
--- NOTE | 2017-05-24 16:03 | CP.PCM.DIS ---
<Eriberto Teresa - Last Filed: 05/24/17 15:51> Provider - Provider Date of Admission: 05/19/17 16:35 Attending physician: Geovanna Cheng MD Consults: GI: Brent Time Spent in preparation of Discharge (in minutes): 41 Diagnosis - Discharge Diagnosis (1) Diverticulitis Status: Acute Hospital Course - Lab Results Lab Results: Most Recent Lab Values WBC 6.1 10^3/ul (4.5-11.0) 05/23/17 05:00 RBC 3.71 10^6/uL (3.5-6.1) 05/23/17 05:00 Hgb 11.2 g/dL (14.0-18.0) L 05/23/17 05:00 Hct 32.5 % (42.0-52.0) L 05/23/17 05:00 MCV 87.6 fl (80.0-105.0) 05/23/17 05:00 MCH 30.2 pg (25.0-35.0) 05/23/17 05:00 MCHC 34.5 g/dl (31.0-37.0) 05/23/17 05:00 RDW 12.4 % (11.5-14.5) 05/23/17 05:00 Plt Count 230 10^3/uL (120.0-450.0) 05/23/17 05:00 MPV 9.7 fl (7.0-11.0) 05/23/17 05:00 Gran % 63.8 % (50.0-68.0) 05/23/17 05:00 Lymph % (Auto) 26.1 % (22.0-35.0) 05/23/17 05:00 [place] % (Auto) 8.0 % (1.0-6.0) H 05/23/17 05:00 Eos % (Auto) 1.8 % (1.5-5.0) 05/23/17 05:00 Baso % (Auto) 0.3 % (0.0-3.0) 05/23/17 05:00 Gran # 3.90 (1.4-6.5) 05/23/17 05:00 Lymph # (Auto) 1.6 (1.2-3.4) 05/23/17 05:00 [place] # (Auto) 0.5 (0.1-0.6) 05/23/17 05:00 Eos # (Auto) 0.1 (0.0-0.7) 05/23/17 05:00 Baso # (Auto) 0.02 K/mm3 (0.0-2.0) 05/23/17 05:00 Retic Count 0.80 % (0.5-1.5) 05/22/17 09:15 PT 13.8 SECONDS (9.4-12.5) H 05/19/17 12:15 INR 1.20 (0.93-1.08) H 05/19/17 12:15 pO2 29 mm/Hg (30-55) L 05/19/17 12:15 VBG pH 7.34 (7.32-7.43) 05/19/17 12:15 VBG pCO2 62.0 (40-60) H 05/19/17 12:15 VBG HCO3 33.4 mmol/l (21-28) H 05/19/17 12:15 VBG Total CO2 35.3 mmol.L (22-28) H 05/19/17 12:15 VBG O2 Sat (Calc) 54.4 % (40-65) 05/19/17 12:15 VBG Base Excess 5.6 mmol/L (0.0-2.0) H 05/19/17 12:15 VBG Potassium 3.7 mmol/L (3.6-5.2) 05/19/17 12:15 Sodium 137.0 mmol/L (132-148) 05/19/17 12:15 Chloride 101.0 mmol/L (98-107) 05/19/17 12:15 Glucose 109 mg/dl (75-110) 05/19/17 12:15 Lactate 1.1 mmol/L (0.7-2.1) 05/19/17 12:15 FiO2 21.0 % 05/19/17 12:15 Sodium 142 mmol/L (132-148) 05/23/17 05:00 Potassium 4.0 mmol/L (3.6-5.0) 05/23/17 05:00 Chloride 103 mmol/L (98-107) 05/23/17 05:00 Carbon Dioxide 29 mmol/L (21-33) 05/23/17 05:00 Anion Gap 14 (10-20) 05/23/17 05:00 BUN 10 mg/dL (7-21) 05/23/17 05:00 Creatinine 1.2 mg/dl (0.8-1.5) 05/23/17 05:00 Est GFR ( Amer) > 60 05/23/17 05:00 Est GFR (Non-Af Amer) > 60 05/23/17 05:00 Random Glucose 101 mg/dL (70-110) 05/23/17 05:00 Lactic Acid 0.9 mmol/L (0.7-2.1) 05/19/17 23:00 Calcium 9.5 mg/dL (8.4-10.5) 05/23/17 05:00 Phosphorus 4.2 mg/dL (2.5-4.5) 05/22/17 06:25 Magnesium 2.2 mg/dL (1.7-2.2) 05/22/17 06:25 Iron 32 ug/dL (45-180) L 05/22/17 09:15 TIBC 268 ug/dL (261-462) 05/22/17 09:15 % Saturation 12 % (20-55) L 05/22/17 09:15 Ferritin 545.0 ng/mL 05/22/17 09:15 Total Bilirubin 0.3 mg/dL (0.2-1.3) 05/23/17 05:00 AST 66 U/L (17-59) H 05/23/17 05:00 ALT 80 U/L (7-56) H 05/23/17 05:00 Alkaline Phosphatase 54 U/L (38-126) 05/23/17 05:00 Total Protein 6.5 g/dL (5.8-8.3) 05/23/17 05:00 Albumin 3.3 g/dL (3.0-4.8) 05/23/17 05:00 Globulin 3.2 gm/dL 05/23/17 05:00 Albumin/Globulin Ratio 1.0 (1.1-1.8) L 05/23/17 05:00 Lipase 53 U/L (23-300) 05/19/17 12:15 Vitamin B12 478 pg/mL (239-931) 05/22/17 09:15 Folate 14.1 ng/mL 05/22/17 09:15 Procalcitonin 0.22 NG/ML (0.19-0.49) 05/19/17 23:00 Venous Blood Potassium 3.7 mmol/L (3.6-5.2) 05/19/17 12:15 Hepatitis A IgM Ab Negative (NEGATIVE) 05/22/17 09:15 Hep Bs Antigen Negative (NEGATIVE) 05/22/17 09:15 Hep B Core IgM Ab Negative (NEGATIVE) 05/22/17 09:15 Hepatitis C Antibody Negative (NEGATIVE) 05/22/17 09:15 HIV 1&2 Ag/Ab, 4th Gen Nonreactive (Nonreactive) 05/21/17 06:00 Influenza Typ A,B (EIA) Negative for flu a/b (NEGATIVE) 05/19/17 12:15 - Hospital Course Hospital Course: 37 year old male with no significant past medical history who presented with left lower quadrant abdominal pain and bright red blood per rectum. A CT Abdomen /Pelvis showed sigmoid diverticulitis. Patient was noted to have tachycardia and a leukocytosis on admission. Patient was started on Rocephin and Flagyl. Normal Saline at 100mls/hr and Toradol for pain control were started. Blood culture and procalcitonin were negative. Diet was advanced as tolerated. GI was consulted. Protonix and SCD's were started for prophylaxis. Patient was noted to have elevated liver enzymes with a negative hepatitis panel. This was attributed to medication side effect. Patient was discharged on 05/23/2017 with discharge instructions written as below. - Date & Time of H&P Date of H&P: 05/19/17 Time of H&P: 22:32 Discharge Exam - Head Exam Head Exam: ATRAUMATIC, NORMAL INSPECTION, NORMOCEPHALIC - Eye Exam Eye Exam: EOMI, Normal appearance Pupil Exam: NORMAL ACCOMODATION, PERRL - ENT Exam ENT Exam: Mucous Membranes Moist, Normal Exam - Neck Exam Neck exam: Full Rom, Normal Inspection - Respiratory Exam Respiratory Exam: Clear to PA & Lateral, NORMAL BREATHING PATTERN, UNREMARKABLE - Cardiovascular Exam Cardiovascular Exam: REGULAR RHYTHM - GI/Abdominal Exam GI & Abdominal Exam: Normal Bowel Sounds, Soft, Unremarkable. absent: Distended , Firm, Guarding, Rebound, Tenderness - Extremities Exam Extremities exam: full ROM, normal capillary refill, normal inspection, pedal pulses present - Back Exam Back exam: NORMAL INSPECTION - Neurological Exam Neurological exam: Alert, CN II-XII Intact, Normal Gait, Oriented x3, Reflexes Normal - Psychiatric Exam Psychiatric exam: Normal Affect, Normal Mood - Skin Skin Exam: Dry, Intact, Normal Color, Warm Discharge Plan - Discharge Medications Prescriptions: Amoxicillin/Clavulanate [Augmentin 500 MG-125 MG] 1 tab PO BID 10 Days #20 tab metroNIDAZOLE [Flagyl] 500 mg PO TID 10 Days #30 tab Pantoprazole [Protonix EC Tab] 40 mg PO 0600 #14 ect - Follow Up Plan Condition: GOOD Disposition: HOME/ ROUTINE Instructions: High Fiber Diet, Diverticulitis (DC), Metronidazole (Systemic), Diverticulitis, Amoxicillin and Clavulanate, Pantoprazole, Diverticulitis (DC) Additional Instructions: Please follow up with your primary care doctor within one week for post hospitalization follow up. If you do not have a primary care doctor, please follow up at the [facility] at [facility] [place] Contact information has been provided in this paperwork. Please follow up with gastroenterology as an outpatient. You may call your insurance company to obtain a list of gastroenterologists that are in network. It is recommended that you have a colonoscopy and endoscopy by GI. Please discuss this with both your PMD and any GI doctor you will see. Please take all medications as prescribed If your symptoms worsen or persist, please seek emergency medical attention Referrals: [facility] at [facility] [place]] <Geovanna Cheng - Last Filed: 05/24/17 16:52> Provider - Provider Date of Admission: 05/19/17 16:35 Attending physician: Geovanna Cheng MD Hospital Course - Lab Results Lab Results: Most Recent Lab Values WBC 6.1 10^3/ul (4.5-11.0) 05/23/17 05:00 RBC 3.71 10^6/uL (3.5-6.1) 05/23/17 05:00 Hgb 11.2 g/dL (14.0-18.0) L 05/23/17 05:00 Hct 32.5 % (42.0-52.0) L 05/23/17 05:00 MCV 87.6 fl (80.0-105.0) 05/23/17 05:00 MCH 30.2 pg (25.0-35.0) 05/23/17 05:00 MCHC 34.5 g/dl (31.0-37.0) 05/23/17 05:00 RDW 12.4 % (11.5-14.5) 05/23/17 05:00 Plt Count 230 10^3/uL (120.0-450.0) 05/23/17 05:00 MPV 9.7 fl (7.0-11.0) 05/23/17 05:00 Gran % 63.8 % (50.0-68.0) 05/23/17 05:00 Lymph % (Auto) 26.1 % (22.0-35.0) 05/23/17 05:00 [place] % (Auto) 8.0 % (1.0-6.0) H 05/23/17 05:00 Eos % (Auto) 1.8 % (1.5-5.0) 05/23/17 05:00 Baso % (Auto) 0.3 % (0.0-3.0) 05/23/17 05:00 Gran # 3.90 (1.4-6.5) 05/23/17 05:00 Lymph # (Auto) 1.6 (1.2-3.4) 05/23/17 05:00 [place] # (Auto) 0.5 (0.1-0.6) 05/23/17 05:00 Eos # (Auto) 0.1 (0.0-0.7) 05/23/17 05:00 Baso # (Auto) 0.02 K/mm3 (0.0-2.0) 05/23/17 05:00 Retic Count 0.80 % (0.5-1.5) 05/22/17 09:15 PT 13.8 SECONDS (9.4-12.5) H 05/19/17 12:15 INR 1.20 (0.93-1.08) H 05/19/17 12:15 pO2 29 mm/Hg (30-55) L 05/19/17 12:15 VBG pH 7.34 (7.32-7.43) 05/19/17 12:15 VBG pCO2 62.0 (40-60) H 05/19/17 12:15 VBG HCO3 33.4 mmol/l (21-28) H 05/19/17 12:15 VBG Total CO2 35.3 mmol.L (22-28) H 05/19/17 12:15 VBG O2 Sat (Calc) 54.4 % (40-65) 05/19/17 12:15 VBG Base Excess 5.6 mmol/L (0.0-2.0) H 05/19/17 12:15 VBG Potassium 3.7 mmol/L (3.6-5.2) 05/19/17 12:15 Sodium 137.0 mmol/L (132-148) 05/19/17 12:15 Chloride 101.0 mmol/L (98-107) 05/19/17 12:15 Glucose 109 mg/dl (75-110) 05/19/17 12:15 Lactate 1.1 mmol/L (0.7-2.1) 05/19/17 12:15 FiO2 21.0 % 05/19/17 12:15 Sodium 142 mmol/L (132-148) 05/23/17 05:00 Potassium 4.0 mmol/L (3.6-5.0) 05/23/17 05:00 Chloride 103 mmol/L (98-107) 05/23/17 05:00 Carbon Dioxide 29 mmol/L (21-33) 05/23/17 05:00 Anion Gap 14 (10-20) 05/23/17 05:00 BUN 10 mg/dL (7-21) 05/23/17 05:00 Creatinine 1.2 mg/dl (0.8-1.5) 05/23/17 05:00 Est GFR ( Amer) > 60 05/23/17 05:00 Est GFR (Non-Af Amer) > 60 05/23/17 05:00 Random Glucose 101 mg/dL (70-110) 05/23/17 05:00 Lactic Acid 0.9 mmol/L (0.7-2.1) 05/19/17 23:00 Calcium 9.5 mg/dL (8.4-10.5) 05/23/17 05:00 Phosphorus 4.2 mg/dL (2.5-4.5) 05/22/17 06:25 Magnesium 2.2 mg/dL (1.7-2.2) 05/22/17 06:25 Iron 32 ug/dL (45-180) L 05/22/17 09:15 TIBC 268 ug/dL (261-462) 05/22/17 09:15 % Saturation 12 % (20-55) L 05/22/17 09:15 Ferritin 545.0 ng/mL 05/22/17 09:15 Total Bilirubin 0.3 mg/dL (0.2-1.3) 05/23/17 05:00 AST 66 U/L (17-59) H 05/23/17 05:00 ALT 80 U/L (7-56) H 05/23/17 05:00 Alkaline Phosphatase 54 U/L (38-126) 05/23/17 05:00 Total Protein 6.5 g/dL (5.8-8.3) 05/23/17 05:00 Albumin 3.3 g/dL (3.0-4.8) 05/23/17 05:00 Globulin 3.2 gm/dL 05/23/17 05:00 Albumin/Globulin Ratio 1.0 (1.1-1.8) L 05/23/17 05:00 Lipase 53 U/L (23-300) 05/19/17 12:15 Vitamin B12 478 pg/mL (239-931) 05/22/17 09:15 Folate 14.1 ng/mL 05/22/17 09:15 Procalcitonin 0.22 NG/ML (0.19-0.49) 05/19/17 23:00 Venous Blood Potassium 3.7 mmol/L (3.6-5.2) 05/19/17 12:15 Hepatitis A IgM Ab Negative (NEGATIVE) 05/22/17 09:15 Hep Bs Antigen Negative (NEGATIVE) 05/22/17 09:15 Hep B Core IgM Ab Negative (NEGATIVE) 05/22/17 09:15 Hepatitis C Antibody Negative (NEGATIVE) 05/22/17 09:15 HIV 1&2 Ag/Ab, 4th Gen Nonreactive (Nonreactive) 05/21/17 06:00 Influenza Typ A,B (EIA) Negative for flu a/b (NEGATIVE) 05/19/17 12:15 Attending/Attestation - Attestation I have personally seen and examined this patient.: Yes I have fully participated in the care of the patient.: Yes I have reviewed all pertinent clinical information, including history, physical exam and plan: Yes Notes (Text): 05/24/17 16:50 attending note; Patient seen and examined with resident. Patient is a 37 year old male with no significant past medical history who came for evaluation of left lower quadrant pain and blood in stool. CT Abdomen/Pelvis showed sigmoid diverticulitis. Treated with IV Rocephin and Flagyl. Patient feels better today. Denies nausea or vomiting. currently tolerating diet. Blood Cultures negative. Anemia; secondary to dilutional. Hemoglobin is stable. No active bleeding. patient is asymptomatic. Discharge home today. Patient is strongly advised to follow-up with GI as outpatient. Upon discharge patient will follow up with Dr Leon.
== END 2017-05-23 14:00 | disposition home or self-care (01) | DRG 183 ==
LOC: ED 11:03 → ERH 16:35 → 3RNO 18:51
PROVIDERS: ADMIT Hospitalist; ATTEND Internal Medicine
DX: K57.32 Diverticulitis of large intestine without perforation or abscess without bleeding (principal); E73.9 Lactose intolerance, unspecified; D64.9 Anemia, unspecified